=== PATIENT | female | born 1990 | race Caucasian/White ===

== ENCOUNTER 2018-09-19 09:08 | Emergency (ER) | payer OTHER ==
[~2018-09-19] VITALS: Ht 167.6 cm; Wt 56.2 kg
[2018-09-19 09:12] VITALS: BP 112/69
--- NOTE | 2018-09-19 09:15 | NUR ---
PT AMB TO RESTROOM FOR URINE SAMPLE, STEADY GAIT
--- NOTE | 2018-09-19 09:21 | NUR ---
28 Y FEMALE C/O VAGINAL BLEEDING. PT REPORTS SPOTTING THIS MORNING WHEN SHE WAS USING RESTROOM. PT STATES SHE USED 5 TEST AT HOME BIMAL AND ALL 5 WERE POSITIVE. PT HAS NOT SEEN PCP YET. LMP 08/18/09, , 4 WEEKS , JANNY 05/25/19. PT DENIES PAIN, OR VAGINAL DISCHARGE. VSS AT THIS TIME. PT [id number]. BED IS DOWN, LOCKED, BED RAIL X 1, ER MD TO SEE PT. MEDHX:DENIES RX:DENIES
--- NOTE | 2018-09-19 09:22 | NUR ---
DR LEON AT BEDSIDE
--- NOTE | 2018-09-19 09:30 | NUR ---
PT DENIES NAUSEA OR VOMITING
[2018-09-19 09:40] LABS: BASOPHILS % (AUTO) 0.5 % (0.0-2.0); EOSINOPHILS % (AUTO) 0.9 % (0.0-4.0); HEMATOCRIT 36.9 % (36-48); HEMOGLOBIN 12.7 g/dL (12.0-16.0); LYMPHOCYTES # (AUTO) 1.7 K/uL (2.5-16.5); LYMPHOCYTES % (AUTO) 38.8 % (20.5-51.1); MEAN CORPUSCULAR HEMOGLOBIN 32 pg (27-31); MEAN CORPUSCULAR HGB CONC 34 g/dL (33-37); MEAN CORPUSCULAR VOLUME 92.3 fL (80-94); MONOCYTES # (AUTO) 0.4 K/uL (0.8-1.0); MONOCYTES % (AUTO) 9.5 % (1.7-9.3); NEUTROPHILS # (AUTO) 2.2 K/uL (1.8-7.7); NEUTROPHILS % (AUTO) 50.3 % (42.2-75.2); PLATELET COUNT (AUTO) 207 K/uL (140-450); RED CELL DISTRIBUTION WIDTH 11.8 % (11.6-13.7); WHITE BLOOD COUNT (AUTO) 4.4 K/uL (4.8-10.8)
[2018-09-19 09:50] LABS: ANION GAP 13.4 (8-16); CARBON DIOXIDE 26.9 mmol/L (21-32); CREATININE 0.8 mg/dL (0.6-1.3); POTASSIUM 4.3 mmol/L (3.5-5.1)
[2018-09-19 09:51] LABS: APPEARANCE,URINE CLEAR (CLEAR); BILIRUBIN,URINE NEGATIVE (NEGATIVE); BLOOD, URINE 1+ (NEGATIVE); COLOR,URINE YELLOW (YELLOW); LEUKOCYTE ESTERASE ,URINE NEGATIVE (NEGATIVE); NITRITE, URINE NEGATIVE (NEGATIVE); PH,URINE 6.5 (5.0-9.0); UGLUCOSE NEGATIVE (NEGATIVE)
[2018-09-19 10:05] LABS: RBC,URINE 0-5 /HPF (0-5); WBC,URINE 0-5 /HPF (0-5)
--- NOTE | 2018-09-19 10:43 | NUR ---
pt left without discharge instructions.
[2018-09-19 10:52] VITALS: BP 118/70
--- NOTE | 2018-09-19 10:52 | NUR ---
pt returned for discharge instructions. Patient discharged with v/s stable. Written and verbal after care instructions given and explained. Patient verbalized understanding. Ambulatory with steady gait. All questions addressed prior to discharge. Advised to follow up with PMD. pt given copy of lab results.
== END 2018-09-19 10:52 | disposition home or self-care (01) ==
LOC: MED 09:08
DX: O20.8 Other hemorrhage in early pregnancy (principal); Z3A.01 Less than 8 weeks gestation of pregnancy
CPT/HCPCS: 36415; 76801; 80048; 81001; 81025; 84702; 85025; 86900; 86901; 99284; Q0092